=== PATIENT | male | born 1990 | race Caucasian/White ===

== ENCOUNTER 2018-08-06 17:58 | Emergency (ER) | payer OTHER ==
[~2018-08-06] VITALS: Ht 180.3 cm; Wt 79.0 kg
[2018-08-06 18:03] VITALS: Ht 180.3 cm; Wt 79.0 kg
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
[2018-08-06] MEDS ORDERED: AMOX500C2 PO (19:26)
[2018-08-06] MEDS ORDERED: PROM6.2515 PO (19:26)
[2018-08-06] MEDS ORDERED: ALBU8.5H8 INH (19:26)
[2018-08-06] MEDS ORDERED: AZIT250T PO (19:26)
[2018-08-06 19:35] VITALS: BP 139/75; PULSE 64; RESP 19
== END 2018-08-06 19:36 | disposition home or self-care (01) ==
LOC: FTE 17:58
DX: R50.9 Fever, unspecified (principal); R06.89 Other abnormalities of breathing
CPT/HCPCS: 99283